=== PATIENT | male | born 1950 | race Caucasian/White ===

== ENCOUNTER 2016-04-15 16:52 | Emergency (ER) | payer OTHER ==
[~2016-04-15] VITALS: Ht 182.9 cm; Wt 115.0 kg
[~2016-04-15 16:52] MED LIST: ALPRAZOLAM0.5 MG PO; AMLODIPINE BESY10 MG PO; AMLODIPINE BESYL5 MG PO; AMOX TR-K CLV1 EAC4 PO; ANAPROX DS550 M1 PO; BENICAR20 MG PO; BUTALB-APAP-CA1 EAC1 PO; COZAAR25 MG PO; COZAAR50 MG PO; Cozaar PO; DOXYCYCLINE HY100 M3 PO; FLEXERIL5 MG PO; FLOMAX0.4 MG PO; FOLIC ACID1 MG PO; GABAPENTIN300 MG PO; GABAPENTIN600 MG PO; GLUCOPHAGE500 MG PO; Glucophage PO; HYDROCHLOROTH12.5 M3 PO; HYDROCODON-ACE1 EAC7 PO; Hydrodiuril,Oretic,E PO; IBUPROFEN800 MG PO; LEVAQUIN750 MG PO; LIDODERM 5% P1 PATCH TD; LO-DOSE ASPIRIN81 M1 PO; MAXALT MLT10 MG PO; MAXALT10 MG PO; METFORMIN HCL500 MG PO; NAPROXEN500 MG PO; NEURONTIN600 MG PO; OMNICEF50 MG/1 ML PO; OXYCODONE HCL30 MG PO; OXYCONTIN20 MG; OXYCONTIN40 MG PO; PERCOCET 5/31 TABLET PO; PREDNISONE20 MG PO; PYRIDIUM200 MG PO; RISPERDAL2 MG PO; RISPERIDONE2 MG PO; RISPERIDONE4 MG PO; SINGULAIR10 MG PO; TAMIFLU75 MG PO; VYTORIN 10/21 TABLET PO; ZOLOFT100 MG PO; Zoloft PO; risperDAL PO
[2016-04-15] MEDS ORDERED: MOBIC7.5 MG PO (18:53)
[2016-04-15] MEDS ORDERED: FLEXERIL10 MG PO (18:53)
[2016-04-15 19:13] VITALS: BP 172/89
== END 2016-04-15 19:15 | disposition home or self-care (01) ==
LOC: EME 16:52
DX: S43.401A Unspecified sprain of right shoulder joint, initial encounter (principal); X50.9XXA Other and unspecified overexertion or strenuous movements or postures, initial encounter; G89.29 Other chronic pain; Z79.891 Long term (current) use of opiate analgesic; Z87.891 Personal history of nicotine dependence
CPT/HCPCS: 73030; 99281; 99283

== ENCOUNTER 2016-09-13 18:02 | Emergency (ER) | payer OTHER ==
[~2016-09-13] VITALS: Ht 185.4 cm; Wt 108.1 kg
[~2016-09-13 18:02] MED LIST changes: +FLEXERIL10 MG PO; +MOBIC7.5 MG PO
[2016-09-13] MEDS ORDERED: PERCOCET 5/31 TABLET PO (18:53)
[2016-09-13] MEDS ORDERED: SKELAXIN800 MG PO (18:53)
[2016-09-13 19:15] VITALS: BP 174/104
== END 2016-09-13 19:16 | disposition home or self-care (01) ==
LOC: EME 18:02
DX: M54.32 Sciatica, left side (principal); I10 Essential (primary) hypertension; Z87.891 Personal history of nicotine dependence
CPT/HCPCS: 99281; 99283; J1100

== ENCOUNTER 2016-10-31 23:35 | Emergency (ER) | payer OTHER ==
[~2016-10-31] VITALS: Ht 185.4 cm; Wt 105.2 kg
[~2016-10-31 23:35] MED LIST changes: +SKELAXIN800 MG PO
[2016-11-01 00:44] LABS: HEMATOCRIT 43.4 % (38.0-50.0); MCH 31.6 PG (29.0-34.0); MCHC 34.1 G/DL (30.0-36.0); MCV 92.5 FL (86-99); MEAN PLAT.VOLUME 9.8 uM^3 (9.0-12.4); PLATELET COUNT 306 K/uL (156-360); RBC DIS.WIDTH-CV 12.3 % (11.8-14.6); RBC DIS.WIDTH-SD 41.8 % (39-53); RED BLOOD COUNT 4.69 M/uL (4.00-5.50); WHITE BLOOD COUNT 9.9 K/uL (4.1-10.2)
[2016-11-01 00:58] LABS: CHLORIDE 108 mEq/L (99-109); POTASSIUM 3.5 mEq/L (3.7-5.4); SODIUM 141 mEq/L (136-147)
[2016-11-01 01:00] LABS: GLUCOSE 91 mg/dL (70-99)
[2016-11-01 01:01] LABS: ANION GAP 9 MEQ/L (2-14)
[2016-11-01 01:04] LABS: GFR ESTIMATE (CALCULATED) > 59 mL/min/; UREA NITROGEN (BUN) 15 mg/dL (9-23)
[2016-11-01 01:07] LABS: TROP-I INTERPRETATION NEGATIVE; TROPONIN-I 0.01 ng/mL (0.0-0.30)
[2016-11-01] MEDS ORDERED: DOXYCYCLINE HY100 MG PO (01:41)
[2016-11-01 01:55] VITALS: BP 206/120
== END 2016-11-01 01:55 | disposition home or self-care (01) ==
LOC: EME 23:35
DX: J20.9 Acute bronchitis, unspecified (principal); I10 Essential (primary) hypertension; E11.9 Type 2 diabetes mellitus without complications; J45.909 Unspecified asthma, uncomplicated; G89.29 Other chronic pain; M54.9 Dorsalgia, unspecified; M25.511 Pain in right shoulder; F32.9 Major depressive disorder, single episode, unspecified; Z87.891 Personal history of nicotine dependence
CPT/HCPCS: 71020; 80048; 84484; 85027; 93005; 99281; 99284

== ENCOUNTER 2017-02-12 12:07 | Emergency (ER) | payer OTHER ==
[~2017-02-12] VITALS: Ht 185.4 cm; Wt 98.6 kg
[~2017-02-12 12:07] MED LIST changes: +DOXYCYCLINE HY100 MG PO
[2017-02-12 12:56] LABS: EOSINOPHIL (%) 2.3 % (0-5); EOSINOPHIL COUNT 0.2 K/uL (0-0.3); HEMATOCRIT 41.9 % (38.0-50.0); IMMATURE GRANULOCYTE (%) 0.3 % (0.0-0.7); INSTRUMENT ABS NEUTROPHIL CT 4.5 K/uL; LYMPHOCYTE COUNT 1.4 K/uL (1.0-2.8); MCH 31.8 PG (29.0-34.0); MCHC 33.9 G/DL (30.0-36.0); MCV 93.9 FL (86-99); MEAN PLAT.VOLUME 9.4 uM^3 (9.0-12.4); MONOCYTE (%) 7.7 % (3-12); MONOCYTE COUNT 0.5 K/uL (0-0.8); NEUTROPHIL (%) 67.8 % (45-76); NEUTROPHIL COUNT 4.5 K/uL (1.8-6.4); PLATELET COUNT 266 K/uL (156-360); RBC DIS.WIDTH-SD 44.7 % (39-53); RED BLOOD COUNT 4.46 M/uL (4.00-5.50); WHITE BLOOD COUNT 6.6 K/uL (4.1-10.2)
[2017-02-12 13:05] LABS: CHLORIDE 109 mEq/L (99-109); POTASSIUM 4.2 mEq/L (3.7-5.4); SODIUM 140 mEq/L (136-147)
[2017-02-12 13:07] LABS: GLUCOSE 95 mg/dL (70-99)
[2017-02-12 13:08] LABS: ANION GAP 7 MEQ/L (2-14)
[2017-02-12 13:10] LABS: GFR ESTIMATE (CALCULATED) > 59 mL/min/
[2017-02-12 13:11] LABS: UREA NITROGEN (BUN) 14 mg/dL (9-23)
[2017-02-12 13:17] LABS: TROP-I INTERPRETATION NEGATIVE; TROPONIN-I < 0.01 ng/mL (0.0-0.30)
[2017-02-12] MEDS ORDERED: XANAX0.5 MG PO (13:29)
[2017-02-12 13:41] VITALS: BP 169/98
== END 2017-02-12 13:42 | disposition home or self-care (01) ==
LOC: EME → EDBD 12:07 → EME 12:07
PROVIDERS: Emergency Medicine
DX: F41.9 Anxiety disorder, unspecified (principal); I10 Essential (primary) hypertension; E11.9 Type 2 diabetes mellitus without complications; J45.909 Unspecified asthma, uncomplicated; G89.29 Other chronic pain; M54.9 Dorsalgia, unspecified; M25.511 Pain in right shoulder; F32.9 Major depressive disorder, single episode, unspecified; F17.200 Nicotine dependence, unspecified, uncomplicated
CPT/HCPCS: 80048; 84484; 85025; 93005; 99281; 99284

== ENCOUNTER 2017-05-12 21:36 | Emergency (ER) | payer OTHER ==
[~2017-05-12] VITALS: Ht 185.4 cm; Wt 101.0 kg
[~2017-05-12 21:36] MED LIST changes: +XANAX0.5 MG PO
[2017-05-13] MEDS ORDERED: ULTRAM50 MG PO (02:15)
[2017-05-13 03:10] VITALS: BP 150/90
== END 2017-05-13 03:11 | disposition home or self-care (01) ==
LOC: EME 21:36
DX: S00.83XA Contusion of other part of head, initial encounter (principal); V49.40XA Driver injured in collision with unspecified motor vehicles in traffic accident, initial encounter; E11.9 Type 2 diabetes mellitus without complications; I10 Essential (primary) hypertension; G89.29 Other chronic pain; J45.909 Unspecified asthma, uncomplicated; F32.9 Major depressive disorder, single episode, unspecified; F17.200 Nicotine dependence, unspecified, uncomplicated
CPT/HCPCS: 70450; 70480; 99281; 99283

== ENCOUNTER 2017-10-17 14:29 | Observation (INO) | payer OTHER ==
[~2017-10-17] VITALS: Ht 185.4 cm; Wt 104.0 kg
[~2017-10-17 14:29] MED LIST changes: +ULTRAM50 MG PO
[2017-10-17 15:23] LABS: BASOPHIL (%) 0.6 % (0-1); BASOPHIL COUNT 0.1 K/uL (0-0.1); EOSINOPHIL (%) 2.1 % (0-5); EOSINOPHIL COUNT 0.2 K/uL (0-0.3); HEMATOCRIT 41.1 % (38.0-50.0); HEMOGLOBIN 14.7 G/DL (12.5-16.6); IMMATURE GRANULOCYTE (%) 0.4 % (0.0-0.7); LYMPHOCYTE (%) 20.8 % (15-42); LYMPHOCYTE COUNT 1.8 K/uL (1.0-2.8); MCH 32.1 PG (29.0-34.0); MCHC 35.8 G/DL (30.0-36.0); MCV 89.7 FL (86-99); MONOCYTE (%) 7.2 % (3-12); MONOCYTE COUNT 0.6 K/uL (0-0.8); NEUTROPHIL (%) 68.9 % (45-76); NEUTROPHIL COUNT 5.9 K/uL (1.8-6.4); PLATELET COUNT 236 K/uL (156-360); RBC DIS.WIDTH-CV 12.3 % (11.8-14.6); RBC DIS.WIDTH-SD 40.3 % (39-53); RED BLOOD COUNT 4.58 M/uL (4.00-5.50); WHITE BLOOD COUNT 8.5 K/uL (4.1-10.2)
[2017-10-17 15:27] LABS: CHLORIDE 106 mEq/L (99-109); POTASSIUM 4.2 mEq/L (3.7-5.4); SODIUM 139 mEq/L (136-147)
[2017-10-17 15:29] LABS: GLUCOSE 95 mg/dL (70-99)
[2017-10-17 15:33] LABS: CREATININE 1.4 mg/dL (0.6-1.3); GFR ESTIMATE (CALCULATED) 54 mL/min/ (58.99-99999); UREA NITROGEN (BUN) 23 mg/dL (9-23)
[2017-10-17 15:37] LABS: INTER. NORMALIZED RATIO 1.2
[2017-10-17 15:40] LABS: TROP-I INTERPRETATION NEGATIVE; TROPONIN-I < 0.01 ng/mL (0.0-0.30)
[2017-10-17] MEDS ORDERED: LOSARTAN POTASS50 MG PO (18:15)
[2017-10-17] MEDS ORDERED: AMLODIPINE BESY10 MG PO (18:15)
[2017-10-17] MEDS ORDERED: LOSARTAN POTAS100 MG PO (18:58)
[2017-10-17] MEDS ORDERED: SILDENAFIL CITR50 MG PO (18:59)
[2017-10-17] MEDS ORDERED: HYDROCHLOROTHIA25 MG PO (19:00)
[2017-10-17 20:54] VITALS: BP 184/101
[2017-10-17 22:25] VITALS: BP 180/111
[2017-10-17 22:41] LABS: APPEARANCE SL.HAZY ((CLEAR)); BILIRUBIN NEGATIVE; BLOOD NEGATIVE; COLOR YELLOW ((YELLOW)); GLUCOSE (STRIP) NEGATIVE; KETONES NEGATIVE; LEUKOCYTES NEGATIVE; NITRITE NEGATIVE; PROTEIN (STRIP) NEGATIVE; SPECIFIC GRAVITY 1.015 (1.000-1.030); UROBILINOGEN 0.2 MG/DL (0.2-1.0)
[2017-10-17 22:51] LABS: BACTERIA RARE /HPF; EPITHELIAL CELLS RARE /HPF; MUCUS TRACE /LPF; RED BLOOD CELLS 0-5 /HPF (0-5); UCUL ADDED? NO; WHITE BLOOD CELLS 0-5 /HPF (0-5)
[2017-10-17 23:01] LABS: BENZODIAZEPINES, URINE SCREEN POSITIVE (200 ng/mL)
[2017-10-17 23:03] LABS: TROP-I INTERPRETATION NEGATIVE; TROPONIN-I < 0.01 ng/mL (0.0-0.30)
[2017-10-17 23:06] LABS: HDL CHOLESTEROL 47 MG/DL (Desirable>=40); LDL CHOLESTEROL 88 mg/dL (Desirable<100); NON-HDL CHOLESTEROL 99 mg/dL (Desirable<160); TOTAL CHOLESTEROL 146 mg/dL (Desirable<200); TRIGLYCERIDES 57 MG/DL (Normal: <150)
[2017-10-17 23:42] VITALS: BP 113/68
[2017-10-18 03:18] VITALS: BP 132/79
[2017-10-18 05:47] LABS: TROP-I INTERPRETATION NEGATIVE; TROPONIN-I < 0.01 ng/mL (0.0-0.30)
[2017-10-18 06:50] LABS: CHLORIDE 108 MEQ/L (99-109); CREATININE 1.3 MG/DL (0.6-1.3); GFR ESTIMATE (CALCULATED) 59 mL/min/ (58.99-99999); GLUCOSE 90 mg/dL (70-99); POTASSIUM 3.8 MEQ/L (3.7-5.4); SODIUM 139 MEQ/L (136-147); UREA NITROGEN (BUN) 25 mg/dL (9-23)
[2017-10-18 07:50] VITALS: BP 166/103; BP 170/95; BP 171/97
[2017-10-18 12:55] VITALS: BP 180/120
[2017-10-18 14:14] VITALS: BP 172/80
[2017-10-18] MEDS ORDERED: ATORVASTATIN CA80 MG PO (14:16)
[2017-10-18] MEDS ORDERED: LOSARTAN POTAS100 MG PO (14:16)
[2017-10-18] MEDS ORDERED: NICOTINE PATCH1 EAC2 TD (14:16)
[2017-10-18] MEDS ORDERED: AMLODIPINE BESY10 MG PO (14:16)
[2017-10-18] MEDS ORDERED: ASPIRIN81 M2 PO (14:16)
[2017-10-18 16:15] VITALS: BP 171/88
[2017-10-18 17:24] VITALS: BP 144/88
[2017-10-19 09:59] LABS: HEMOGLOBIN A1c (GLYCOHEMOGLOB) 4.9 % (Below 5.7)
[2017-10-19] MEDS ORDERED: ATARAX,VISTARIL25 MG PO (15:46)
[2017-10-19] MEDS ORDERED: SEROQUEL12.5 MG PO (15:46)
== END 2017-10-18 18:27 | disposition home or self-care (01) ==
LOC: EME 14:29 → EDOF 19:11 → 4SOUTH 19:11 → EDOF 19:11 → ENRESERV 19:13 → 4SOUTH 20:48
PROVIDERS: Emergency Medicine; Internal Medicine; Physician Assistant Medical
DX: I16.0 Hypertensive urgency (principal); R41.0 Disorientation, unspecified; F41.9 Anxiety disorder, unspecified; Z87.820 Personal history of traumatic brain injury; I11.9 Hypertensive heart disease without heart failure; R41.3 Other amnesia; R94.31 Abnormal electrocardiogram [ECG] [EKG]; R42 Dizziness and giddiness; R51 Headache; E78.5 Hyperlipidemia, unspecified; E11.9 Type 2 diabetes mellitus without complications; G89.29 Other chronic pain; M54.5 Low back pain; E66.9 Obesity, unspecified; F32.9 Major depressive disorder, single episode, unspecified; Z91.19 Patient's noncompliance with other medical treatment and regimen; Z91.14 Patient's other noncompliance with medication regimen; F17.210 Nicotine dependence, cigarettes, uncomplicated; Z90.49 Acquired absence of other specified parts of digestive tract; Z82.49 Family history of ischemic heart disease and other diseases of the circulatory system
CPT/HCPCS: 70450; 71045; 80048; 80061; 80306 90; 81003; 82948; 83036; 84484; 85025; 85610; 85730; 93005; 93306; 93880; 95819; 99281; 99284; G0378; G0480; G8978 GP CI; G8979 GP CI; G8980 GP CI; G8987 GO CI; G8988 CI; G8989 GO CI; J0360; J1650; J1815; J2270; J7030